=== PATIENT | female | born 1965 | race Caucasian/White ===

== ENCOUNTER 2020-10-09 21:39 | Emergency (ER) | payer BC, MEDICAID ==
[~2020-10-09] VITALS: Ht 177.8 cm; Wt 113.2 kg
[2020-10-09] MEDS ORDERED: HYDROcodone/acetaminophen 10/325mg tab PO ONE (21:50)
[2020-10-09] MEDS ORDERED: ondansetron/PF 4mg/2ml inj IV ONE ×2 (22:10)
[2020-10-09] MEDS ORDERED: fentaNYL/PF 50MCG/1 ML 2ML syringe IV ONE (22:10)
[2020-10-09] MEDS ORDERED: morphine 4 MG/ML inj SYRINge IV ONE (22:10)
[2020-10-09] MEDS ORDERED: etomidate 2mg/ml inj. IV ONE (22:10)
[2020-10-09] MEDS ORDERED: LIDOcaine 1% 30ml preserv. free vial IJ ONE (22:10)
[2020-10-09] MEDS ORDERED: ondansetron 4mg rapidly disintigrating tab PO ONE ×2 (22:20→23:10)
[2020-10-09] MEDS ORDERED: HYDR-3964 PO (22:51)
[2020-10-09] MEDS ORDERED: ONDA4TAB6 PO (22:51)
[2020-10-09] MEDS ORDERED: HYDROcodone/acetaminophen 5mg/325mg tablet PO ONE (23:10)
--- NOTE | 2020-10-10 00:36 | NUR ---
DR French CANCELLED CONSCIOUS SEDATION CHOSE TO BLOCK PATIENT INSTEAD
[2020-10-10 00:37] VITALS: BP 164/67
== END 2020-10-10 00:38 | disposition home or self-care (01) ==
LOC: ER 21:39
DX: S52.591A Other fractures of lower end of right radius, initial encounter for closed fracture (principal); M25.531 Pain in right wrist; Z88.2 Allergy status to sulfonamides; Z79.899 Other long term (current) drug therapy; W18.49XA Other slipping, tripping and stumbling without falling, initial encounter; Y93.89 Activity, other specified; Y92.89 Other specified places as the place of occurrence of the external cause; Y99.8 Other external cause status
CPT/HCPCS: 29125; 73110; 73130; 99284; J2001

== ENCOUNTER 2020-11-07 10:02 | Day surgery (SDC) | payer BC, MEDICAID ==
[2020-10-31 16:26] LABS: BASOPHILS # (AUTO) 0.1 X10'3 (0-0.2); BASOPHILS % (AUTO) 0.8 % (0-1); EOSINOPHILS # (AUTO) 0.3 X10'3 (0-0.9); EOSINOPHILS % (AUTO) 3.7 % (0-6); LYMPHOCYTES # (AUTO) 3.1 X10'3 (1.1-4.8); LYMPHOCYTES % (AUTO) 35.1 % (21-51); MEAN CORPUSCULAR HEMOGLOBIN 29.2 PG (27.0-31.0); MONOCYTES # (AUTO) 0.8 X10'3 (0-0.9); MONOCYTES % (AUTO) 8.5 % (2-12); NEUTROPHILS # (AUTO) 4.6 X10'3 (1.8-7.7); NEUTROPHILS % (AUTO) 51.9 % (42-75); PRE OP HEMATOCRIT 38.4 % (35.0-45.0); PRE OP HEMOGLOBIN 13.1 g/dL (12.0-16.0); PRE OP PLATELET COUNT 476 X10'3 (140-440); RED BLOOD COUNT 4.47 X10'6 (4.20-5.60); RED CELL DISTRIBUTION WIDTH 13.6 % (11.5-14.5)
[2020-10-31 16:40] LABS: ALBUMIN 3.6 G/DL (3.4-5.0); ALBUMIN/GLOBULIN RATIO 0.9 (1.1-1.5); ALKALINE PHOSPHATASE 101 IU/L (46-116); BLOOD UREA NITROGEN 15 MG/DL (7-18); BUN/CREATININE RATIO 27.3 (6.6-38.0); CALCIUM 8.7 MG/DL (8.5-10.1); CHLORIDE 104 MMOL/L (99-107); CREATININE 0.55 MG/DL (0.40-0.90); PRE OP ALT 33 U/L (30-65); PRE OP ANION GAP 9 (8-16); PRE OP AST 22 U/L (10-37); PRE OP BILIRUB, TOTAL 0.3 MG/DL (0.0-1.0); PRE OP GLUCOSE 118 MG/DL (70-104); PRE OP SODIUM 139 MMOL/L (135-145); TOTAL CARBON DIOXIDE 26.2 MMOL/L (24-32); TOTAL PROTEIN 7.6 G/DL (6.4-8.2); eGFR > 90 ML/MIN
[2020-10-31 16:46] LABS: PRE OP POTASSIUM 3.2 MMOL/L (3.4-5.1)
[2020-11-07] VITALS (8 sets, daily range): BP systolic 125–148; BP diastolic 60–91
[~2020-11-07] VITALS: Ht 172.7 cm; Wt 118.6 kg
[~2020-11-07 10:02] MED LIST: ACET-1025 PO; HYDR-3964 PO; MELO10CA3 PO; OMEP20CA15 PO; ceFAZolin/D5W- 1GM premix 50 ML IV ONE; cefazolin/dext.iso 2gm/100ml 100 ML IV ONE; famotidine 20mg tablet PO ONE; ringers solution, lacted 1,000 ML IV SCH
[2020-11-07] MEDS ORDERED: ipratropium/albuterol 3ml nebule IH STA (10:37)
[2020-11-07] MEDS ORDERED: midazolam 1 mg/ML 2ml injection ONE ×2 (11:17→11:19)
[2020-11-07] MEDS ORDERED: fentaNYL/PF 50MCG/1 ML 2ML syringe ONE ×3 (11:17→12:18)
[2020-11-07] MEDS ORDERED: BUPIVAcaine/PF 2.5 mg/ml (0.25%) 30ml vial ONE (11:32)
[2020-11-07] MEDS ORDERED: sevoflurane 250ml liquid IH ONE (11:41)
[2020-11-07] MEDS ORDERED: dexamethasone sod phosphate 4mg/ml inj. ONE (12:52)
[2020-11-07] MEDS ORDERED: LIDOcaine 1%/PF 5ML 10 MG/ML VIAL ONE (12:52)
[2020-11-07] MEDS ORDERED: ondansetron/PF 4mg/2ml inj ONE (12:52)
[2020-11-07] MEDS ORDERED: ROPIVAcaine 0.5% (5mg/ml) 30ml vial ONE (12:52)
[2020-11-07] MEDS ORDERED: propofol inj 20 ML IV ONE (12:52)
[2020-11-07] MEDS ORDERED: ketorolac trometh. 30mg/ml inj. ONE (12:52)
[2020-11-07] MEDS ORDERED: acetaminophen 1,000mg/100ml IV 100 ML IV ONE (12:52)
--- NOTE | 2020-11-07 12:58 | NUR ---
Received from OR via [facility], accompanied by Anesthesiologist BARRERA and report given by Anesthesiolgist. PATIENT WITH 20G PIV IN LEFT UE RUNNING LR AT 100. MEDICATED FOR PAIN BY ANESTHESIA UPON ARRIVAL . 10L MASK ON WITH 100% SATURATIONS. + CAP REFILL AND FINGERS ARE ALL PWD TO RIGHT UE.. ELEVATED UPON A PILLOW ON ARRIVAL. VSS. Addendum: 11/07/20 at 1314 by Jacob Ritter RN, RN Amended: Links added.
[2020-11-07] MEDS ORDERED: meperidine/PF 25mg/ml syringe ONE (13:07)
[2020-11-07] MEDS ORDERED: ringers solution, lacted 1,000 ML IV SCH (13:10)
[2020-11-07] MEDS ORDERED: morphine 4 MG/ML inj SYRINge IV PRN (13:10)
[2020-11-07] MEDS ORDERED: meperidine/PF 25mg/ml syringe IV PRN ×3 (13:10)
[2020-11-07] MEDS ORDERED: proCHLORperazine 10 MG/2 ml inj IV PRN (13:10)
[2020-11-07] MEDS ORDERED: ondansetron/PF 4mg/2ml inj IV PRN (13:10)
[2020-11-07] MEDS ORDERED: morphine 2 MG/ML inj. syringe IV PRN (13:10)
--- NOTE | 2020-11-07 13:58 | NUR ---
PATIENT VERBALIZED UNDERSTANDING, OPPORTUNITY TO ASK QUESTIONS GIVEN AND PATIENT COMFORTABLE WITH DC. IV TAKEN OUT WITHOUT COMPLICATION. PATIENT HAS MET ALL DC CRITERIA FOR DC HOME. I HAVE REVIEWED D/C INSTRUCTIONS WITH PATIENT. TAKEN OUT VIA WHEELCHAIR WHERE PATIENT WAS TAKEN HOME WITH ALL BELONGINGS. FAMILY GAVE PATIENT TRANSPORT HOME. ICE ON AND REINSTRUCTED TO ELEVATE WRIST ABOVE ELBOW AND ELBOW ABOVE HEART. Addendum: 11/07/20 at 1416 by Jacob Ritter RN, RN Amended: Links added.
== END 2020-11-07 13:58 | disposition home or self-care (01) ==
LOC: PAS 10:02
PROVIDERS: ATTEND Orthopaedic Surgery Hand Surgery
DX: S52.551A Other extraarticular fracture of lower end of right radius, initial encounter for closed fracture (principal); G56.01 Carpal tunnel syndrome, right upper limb; G89.18 Other acute postprocedural pain; F17.210 Nicotine dependence, cigarettes, uncomplicated; J44.9 Chronic obstructive pulmonary disease, unspecified; K21.9 Gastro-esophageal reflux disease without esophagitis; F32.9 Major depressive disorder, single episode, unspecified; F41.9 Anxiety disorder, unspecified; M19.90 Unspecified osteoarthritis, unspecified site; E66.01 Morbid (severe) obesity due to excess calories; Z68.39 Body mass index [BMI] 39.0-39.9, adult; Z90.49 Acquired absence of other specified parts of digestive tract; Z98.890 Other specified postprocedural states; Z20.822 Contact with and (suspected) exposure to COVID-19; Z79.899 Other long term (current) drug therapy; Z88.2 Allergy status to sulfonamides; W19.XXXA Unspecified fall, initial encounter; Y93.89 Activity, other specified; Y92.89 Other specified places as the place of occurrence of the external cause; Y99.8 Other external cause status
CPT/HCPCS: 25607; 36415; 64415; 64721; 76942; 80053; 85025; 93005; 94640; 94760; C1713; J0131; J0690; J1100; J1885; J2175; J2250; J2405; J2704; J3010; J3490; J7120; U0003; A4215; A4618; A6449; A7000; J2795

== ENCOUNTER 2021-04-14 05:33 | Emergency (ER) | payer BC, MEDICAID ==
[~2021-04-14] VITALS: Ht 177.8 cm; Wt 117.5 kg
[~2021-04-14 05:33] MED LIST changes: -HYDR-3964 PO; -ceFAZolin/D5W- 1GM premix 50 ML IV ONE; -cefazolin/dext.iso 2gm/100ml 100 ML IV ONE; -famotidine 20mg tablet PO ONE; -ringers solution, lacted 1,000 ML IV SCH
[2021-04-14 06:12] VITALS: BP 139/74
[2021-04-14] MEDS ORDERED: ACET-2615 PO (06:44)
[2021-04-14] MEDS ORDERED: IBUP-1986 PO (06:44)
== END 2021-04-14 07:01 | disposition home or self-care (01) ==
LOC: ER 05:33
DX: M25.531 Pain in right wrist (principal); Z88.2 Allergy status to sulfonamides; Z79.899 Other long term (current) drug therapy
CPT/HCPCS: 29125; 73110; 73130; 99284

== ENCOUNTER 2023-01-29 16:59 | Emergency (ER) | payer BC, MEDICAID ==
[~2023-01-29] VITALS: Ht 177.8 cm; Wt 118.8 kg
[~2023-01-29 16:59] MED LIST changes: +IBUP-1986 PO
[2023-01-29] MEDS ORDERED: TETanus/Pertussis (Acell)/Diphther VAC/PF (Tdap-Adult) 0.5ml syringe IMVAC ONE (17:25)
[2023-01-29] MEDS ORDERED: bacitracin 15gm ointment TP ONE (17:25)
[2023-01-29] MEDS ORDERED: LIDOcaine 1% W/epiNEPHrine 1:100,000 20ml vial SQ ONE (17:25)
[2023-01-29 18:18] VITALS: BP 115/87
== END 2023-01-29 18:22 | disposition home or self-care (01) ==
LOC: ER 17:00
DX: S81.812A Laceration without foreign body, left lower leg, initial encounter (principal); Z88.2 Allergy status to sulfonamides; W45.8XXA Other foreign body or object entering through skin, initial encounter; Y93.89 Activity, other specified; Y92.89 Other specified places as the place of occurrence of the external cause; Y99.8 Other external cause status
CPT/HCPCS: 12032; 90471; 90715; 99284; J7030; 12002; 99283; A6258; A6449

== ENCOUNTER 2023-02-04 13:30 | Emergency (ER) | payer BC, MEDICAID ==
[~2023-02-04] VITALS: Ht 180.3 cm; Wt 119.4 kg
[2023-02-04 13:40] VITALS: BP 164/86
[2023-02-04] MEDS ORDERED: CEPH-585 PO (15:03)
[2023-02-04] MEDS ORDERED: TRIA15CR61 TOP (15:04)
[2023-02-04] MEDS ORDERED: triamcinolone acetonide 40mg/ml inj IM ONE (15:05)
== END 2023-02-04 15:51 | disposition home or self-care (01) ==
LOC: ER 13:31
DX: L03.116 Cellulitis of left lower limb (principal); L23.7 Allergic contact dermatitis due to plants, except food; Z87.81 Personal history of (healed) traumatic fracture; Z88.2 Allergy status to sulfonamides; Z79.2 Long term (current) use of antibiotics; Z79.899 Other long term (current) drug therapy
CPT/HCPCS: 96372; 99283; J3301

== ENCOUNTER 2023-10-20 02:36 | Emergency (ER) | payer BC, MEDICAID ==
[~2023-10-20] VITALS: Ht 177.8 cm; Wt 109.1 kg
[~2023-10-20 02:36] MED LIST changes: +CEPH-585 PO
[2023-10-20 03:09] VITALS: TEMP 98.4
[2023-10-20 05:45] VITALS: BP 155/76; PULSE 72; RESP 18; O2SAT 98
[2023-10-20] MEDS ORDERED: ibuprofen 200mg tablet ONE (06:58)
[2023-10-20] MEDS ORDERED: ibuprofen 200mg tablet PO ONE (08:15)
[2023-10-20 08:16] LABS: BASOPHILS # (AUTO) 0.1 X10'3 (0-0.2); BASOPHILS % (AUTO) 0.8 % (0-1); EOSINOPHILS # (AUTO) 0.3 X10'3 (0-0.9); EOSINOPHILS % (AUTO) 3.7 % (0-6); HEMATOCRIT 40.9 % (35.0-45.0); HEMOGLOBIN 13.8 g/dl (12.0-16.0); MEAN CORPUSCULAR HEMOGLOBIN 29.2 PG (27.0-31.0); MEAN CORPUSCULAR HGB CONC 33.7 g/dL (33.0-36.5); MEAN CORPUSCULAR VOLUME 86.8 FL (78-98); MEAN PLATELET VOLUME 7.1 FL (7.4-10.4); MONOCYTES % (AUTO) 11.5 % (2-12); NEUTROPHILS # (AUTO) 4.6 X10'3 (1.8-7.7); PLATELET COUNT 427 X10'3 (140-440); RED BLOOD COUNT 4.71 X10'6 (4.20-5.60); RED CELL DISTRIBUTION WIDTH 13.9 % (11.5-14.5)
[2023-10-20 09:28] LABS: ALBUMIN 3.9 G/DL (3.4-5.0); ANION GAP 11 (8-16); BLOOD UREA NITROGEN 22 MG/DL (7-18); BUN/CREATININE RATIO 34.4 (10.0-20.0); CALCIUM 9.4 MG/DL (8.5-10.1); CHLORIDE 104 MMOL/L (99-107); CREATININE 0.64 MG/DL (0.40-0.90); GLUCOSE 96 MG/DL (70-104); POTASSIUM 3.4 MMOL/L (3.5-5.1); SODIUM 141 MMOL/L (135-145); TOTAL CARBON DIOXIDE 26.3 MMOL/L (24-32); eCRCL 106 ML/MIN; eGFR > 90 ML/MIN
== END 2023-10-20 08:30 | disposition left against medical advice (07) ==
LOC: ER 02:37
DX: M25.561 Pain in right knee (principal); Z53.29 Procedure and treatment not carried out because of patient's decision for other reasons; Z88.2 Allergy status to sulfonamides
CPT/HCPCS: 36415; 73564; 80048; 85025; 99284

== ENCOUNTER 2024-01-30 17:37 | Day surgery (SDC) | payer BC, MEDICAID ==
[2024-01-27 15:58] LABS: BASOPHILS # (AUTO) 0.1 X10'3 (0-0.2); BASOPHILS % (AUTO) 0.5 % (0-1); EOSINOPHILS # (AUTO) 0.2 X10'3 (0-0.9); EOSINOPHILS % (AUTO) 2.2 % (0-6); LYMPHOCYTES # (AUTO) 3.4 X10'3 (1.1-4.8); LYMPHOCYTES % (AUTO) 33.5 % (21-51); MEAN CORPUSCULAR HEMOGLOBIN 29.4 PG (27.0-31.0); MEAN CORPUSCULAR VOLUME 86.4 FL (78-98); MEAN PLATELET VOLUME 7.3 FL (7.4-10.4); MONOCYTES # (AUTO) 0.9 X10'3 (0-0.9); MONOCYTES % (AUTO) 9.2 % (2-12); NEUTROPHILS # (AUTO) 5.5 X10'3 (1.8-7.7); NEUTROPHILS % (AUTO) 54.6 % (42-75); PRE OP HEMATOCRIT 41.8 % (35.0-45.0); PRE OP HEMOGLOBIN 14.2 g/dL (12.0-16.0); PRE OP PLATELET COUNT 440 X10'3 (140-440); PRE OP WHITE BLOOD COUNT 10.1 10'3 (4.8-10.8); RED BLOOD COUNT 4.84 X10'6 (4.20-5.60); RED CELL DISTRIBUTION WIDTH 13.9 % (11.5-14.5)
[2024-01-27 16:14] LABS: ALBUMIN 3.6 G/DL (3.4-5.0); ALBUMIN/GLOBULIN RATIO 0.8 (1.1-1.5); ALKALINE PHOSPHATASE 126 IU/L (46-116); BLOOD UREA NITROGEN 9 MG/DL (7-18); BUN/CREATININE RATIO 14.3 (10.0-20.0); CALCIUM 9.1 MG/DL (8.5-10.1); CHLORIDE 102 MMOL/L (99-107); CREATININE 0.63 MG/DL (0.40-0.90); PRE OP ALT 39 U/L (30-65); PRE OP ANION GAP 9 (8-16); PRE OP AST 21 U/L (10-37); PRE OP BILIRUB, TOTAL 0.4 MG/DL (0.0-1.0); PRE OP GLUCOSE 98 MG/DL (70-104); PRE OP POTASSIUM 3.5 MMOL/L (3.4-5.1); PRE OP SODIUM 137 MMOL/L (135-145); TOTAL CARBON DIOXIDE 26.2 MMOL/L (24-32); TOTAL PROTEIN 8.1 G/DL (6.4-8.2); eCRCL 108 ML/MIN; eGFR > 90 ML/MIN
[~2024-01-30] VITALS: Ht 180.3 cm; Wt 117.8 kg
[2024-01-30] MEDS: cefazolin 2gm/D5W 100mL 100 ML IV ONE (05:30)
[2024-01-30 14:20] VITALS: BP 130/79; PULSE 91; RESP 16; TEMP 98.8; O2SAT 96
[2024-01-30] MEDS: ringers solution, lacted 1,000 ML IV SCH (14:37)
[2024-01-30] MEDS: famotidine 20mg tablet PO ONE (14:38)
[2024-01-30] MEDS: BUPIVAcaine/PF 2.5mg/ml (0.25%) 10ml vial IJ ONE (15:36)
[2024-01-30 16:00] VITALS: BP 133/70; PULSE 78; RESP 14; O2SAT 99
[2024-01-30 16:10] VITALS: BP 130/81; PULSE 76; RESP 16; O2SAT 92
[2024-01-30 16:20] VITALS: BP 121/73; PULSE 80; RESP 15; O2SAT 91
[2024-01-30 16:30] VITALS: BP 130/82; PULSE 77; RESP 16; O2SAT 91
[2024-01-30 16:40] VITALS: BP 141/77; PULSE 67; RESP 15; O2SAT 93
[~2024-01-30 17:37] MED LIST changes: -ACET-1025 PO; +ALBU8HFA INH; +BUPIVAcaine/PF 2.5mg/ml (0.25%) 10ml vial ONE; -CEPH-585 PO; -IBUP-1986 PO; +LIDOcaine 0.5% (5mg/ml) 50ml vial ONE; -MELO10CA3 PO; +fentaNYL/PF 50MCG/1 ML 2ML syringe ONE; +midazolam 1 mg/ML 2ml injection ONE; +propofol inj 20 ML IV ONE
== END 2024-01-30 17:38 | disposition home or self-care (01) ==
LOC: PAS 17:37
PROVIDERS: ATTEND Orthopaedic Surgery Hand Surgery
DX: S62.615A Displaced fracture of proximal phalanx of left ring finger, initial encounter for closed fracture (principal); I49.1 Atrial premature depolarization; J44.9 Chronic obstructive pulmonary disease, unspecified; K21.9 Gastro-esophageal reflux disease without esophagitis; E66.9 Obesity, unspecified; F32.A Depression, unspecified; M19.90 Unspecified osteoarthritis, unspecified site; Z79.891 Long term (current) use of opiate analgesic; Z79.899 Other long term (current) drug therapy; Z90.49 Acquired absence of other specified parts of digestive tract; Z98.890 Other specified postprocedural states; Z88.2 Allergy status to sulfonamides; Z68.36 Body mass index [BMI] 36.0-36.9, adult; W18.30XA Fall on same level, unspecified, initial encounter; Y93.89 Activity, other specified; Y92.89 Other specified places as the place of occurrence of the external cause; Y99.8 Other external cause status
CPT/HCPCS: 26735; 36415; 80053; 82948; 85025; 93005; A6222; C1713; J0690; J2250; J2704; J3010; J3490; J7030; J7120; Z7506; Z7512; A4215; A4618; A6449; A7000

== ENCOUNTER 2024-11-09 20:17 | Emergency (ER) | payer OTHER, MEDICAID ==
[~2024-11-09] VITALS: Ht 157.5 cm; Wt 108.6 kg
[~2024-11-09 20:17] MED LIST changes: -BUPIVAcaine/PF 2.5mg/ml (0.25%) 10ml vial ONE; -LIDOcaine 0.5% (5mg/ml) 50ml vial ONE; -fentaNYL/PF 50MCG/1 ML 2ML syringe ONE; -midazolam 1 mg/ML 2ml injection ONE; -propofol inj 20 ML IV ONE
[2024-11-09 20:28] VITALS: BP 136/80; PULSE 82; RESP 16; O2SAT 97
[2024-11-09] MEDS ORDERED: ketorolac trometh 15mg/ml vial 15 MG/ML ML IM ONE (21:20)
[2024-11-09] MEDS ORDERED: HYDR-3965 PO (21:25)
[2024-11-09] MEDS ORDERED: LIDO700A32 TOP (21:25)
[2024-11-09] MEDS ORDERED: METH-798 PO (21:25)
[2024-11-09 21:43] VITALS: TEMP 98.3
== END 2024-11-09 21:51 | disposition home or self-care (01) ==
LOC: ER 20:17
DX: M25.512 Pain in left shoulder (principal); Z88.2 Allergy status to sulfonamides; Z79.899 Other long term (current) drug therapy
CPT/HCPCS: 29105; 99283; A4565

== ENCOUNTER 2024-11-20 18:31 | Emergency (ER) | payer OTHER, MEDICAID ==
[~2024-11-20] VITALS: Ht 177.8 cm; Wt 100.5 kg
[~2024-11-20 18:31] MED LIST changes: +HYDR-3965 PO; +LIDO700A32 TOP; +METH-798 PO
[2024-11-20] MEDS: ketorolac trometh 15mg/ml vial 15 MG/ML ML IM ONE (22:25)
[2024-11-20] MEDS: HYDROcodone/acetaminophen 5mg/325mg tablet PO ONE (22:25)
[2024-11-20 22:30] VITALS: BP 145/76; PULSE 89; RESP 18; TEMP 98.6; O2SAT 99
== END 2024-11-20 22:31 | disposition home or self-care (01) ==
LOC: ER 18:32
DX: M25.512 Pain in left shoulder (principal); Z76.0 Encounter for issue of repeat prescription; Z88.2 Allergy status to sulfonamides
CPT/HCPCS: 96372; 99283; J1885